=== PATIENT | male | born 1995 | race Two or more races ===

== ENCOUNTER 2018-04-18 16:11 | Emergency (ER) | payer OTHER, BC, MEDICAID | END 2018-04-18 19:08 | disposition home or self-care (01) | LOC: M ED 16:11 | DX: T54.3X1A Toxic effect of corrosive alkalis and alkali-like substances, accidental (unintentional), initial encounter (principal); H10.211 Acute toxic conjunctivitis, right eye; F17.210 Nicotine dependence, cigarettes, uncomplicated; X58.XXXA Exposure to other specified factors, initial encounter; Y92.89 Other specified places as the place of occurrence of the external cause | CPT/HCPCS: 99284 ==

== ENCOUNTER → 2020-07-30 | Outpatient (REF) | payer BC, OTHER ==
[2020-07-30 20:33] LABS: FREE T4 0.83 NG/DL (0.76-1.46); THYROID STIMULATING HORMONE 0.589 uIU/ML (0.358-3.740)
== END ==
LOC: M LAB REF 18:59 → M LABDRWAD 18:59
PROVIDERS: ATTEND Physician Assistant Medical
DX: F32.9 Major depressive disorder, single episode, unspecified (principal); F41.9 Anxiety disorder, unspecified

== ENCOUNTER → 2020-12-06 | Outpatient (CLI) | payer SELFPAY | LOC: M LABSMTC 10:18 | PROVIDERS: ATTEND Pediatrics | DX: Z20.822 Contact with and (suspected) exposure to COVID-19 (principal) ==

== ENCOUNTER 2022-10-27 12:17 | Emergency (ER) | payer OTHER, MEDICAID ==
[~2022-10-27] VITALS: Ht 190.5 cm; Wt 80.0 kg
[2022-10-27 18:21] VITALS: BP 124/78
== END 2022-10-27 19:40 | disposition home or self-care (01) ==
LOC: M ED 12:17
DX: S06.0X0A Concussion without loss of consciousness, initial encounter (principal); R07.81 Pleurodynia; M25.512 Pain in left shoulder; W01.0XXA Fall on same level from slipping, tripping and stumbling without subsequent striking against object, initial encounter; Y92.830 Public park as the place of occurrence of the external cause; Y93.23 Activity, snow (alpine) (downhill) skiing, snowboarding, sledding, tobogganing and snow tubing

== ENCOUNTER → 2022-12-06 | Outpatient (REF) | LOC: M LABSMTC 11:14 | PROVIDERS: ATTEND Family Medicine | DX: Z11.52 Encounter for screening for COVID-19 (principal) ==

== ENCOUNTER → 2022-12-09 | Outpatient (REF) | LOC: M LABSMTC 10:58 | PROVIDERS: ATTEND Family Medicine | DX: Z11.52 Encounter for screening for COVID-19 (principal) ==

== ENCOUNTER 2025-01-18 10:32 | Inpatient (IN) | payer MEDICAID, OTHER, SELFPAY ==
[~2025-01-18] VITALS: Ht 190.5 cm; Wt 78.3 kg
[2025-01-18 11:16] LABS: HEMATOCRIT 43.4 % (42.0-52.0); HEMOGLOBIN 15.5 g/dl (13.5-17.5); MEAN CORPUSCULAR HGB CONC 35.7 g/dl (32.0-36.5); MEAN CORPUSCULAR VOLUME 86.8 fl (80.0-96.0); PLATELET COUNT, AUTOMATED 240 10^3/uL (150-450); WHITE BLOOD COUNT 6.6 10^3/uL (4.0-10.0)
[2025-01-18 11:47] LABS: AMPHETAMINES LEVEL URINE NEGATIVE (NEGATIVE); BARBITURATES URINE NEGATIVE (NEGATIVE); BENZODIAZEPINES URINE NEGATIVE (NEGATIVE)
[2025-01-18 11:48] LABS: PHENCYCLIDINE URINE NEGATIVE (NEGATIVE)
[2025-01-18 11:50] LABS: ETHYL ALCOHOL (ETHANOL) < 0.003 % (0.000-0.010)
[2025-01-18 11:51] LABS: SALICYLATE LEVEL < 3.0 MG/DL (<30)
[2025-01-18 11:52] LABS: ALBUMIN 4.7 G/DL (3.2-5.2); ALKALINE PHOSPHATASE 86 U/L (40-129); ALT/SGPT 13 U/L (7.0-40); AST/SGOT 15 U/L (<34); BILIRUBIN,DIRECT 0.3 MG/DL (<0.4); BILIRUBIN,TOTAL 0.7 MG/DL (0.3-1.2); BLOOD UREA NITROGEN 11 MG/DL (9-23); CALCIUM LEVEL 9.3 MG/DL (8.5-10.1); CARBON DIOXIDE LEVEL 28 MMOL/L (20-31); CHLORIDE LEVEL 103 MMOL/L (98-107); CREATININE FOR GFR 0.82 MG/DL (0.70-1.30); GLOMERULAR FILTRATION RATE > 60.0 (>60); GLUCOSE, FASTING 83 MG/DL (60-100); POTASSIUM SERUM 3.9 MMOL/L (3.5-5.1); SODIUM LEVEL 143 MMOL/L (136-145); TOTAL PROTEIN 7.8 G/DL (5.7-8.2)
[2025-01-18] MEDS ORDERED: THERTAB52 PO (11:54)
[2025-01-18] MEDS ORDERED: HOME MED LIST COMPLETE! XX SCH (11:55)
[2025-01-18 12:10] LABS: CANNABINOIDS URINE POSITIVE (NEGATIVE); COCAINE METABOLITE URINE NEGATIVE (NEGATIVE); METHADONE URINE NEGATIVE (NEGATIVE); OPIATES URINE NEGATIVE (NEGATIVE)
[2025-01-18] MEDS ORDERED: traZODone 50 MG TAB PO PRN (15:15)
[2025-01-18] MEDS ORDERED: MOM 30ML SUSPENSION UDC PO PRN (15:15)
[2025-01-18] MEDS ORDERED: OLANZapine 5 MG TAB PO PRN (15:15)
[2025-01-18] MEDS ORDERED: MAALOX 30 ML SUSP *UDC PO PRN (15:15)
[2025-01-18] MEDS ORDERED: LORazepam 1 MG TAB PO PRN (15:15)
[2025-01-18] MEDS ORDERED: diphenhydrAMINE 25MG CAP PO PRN (15:15)
[2025-01-18] MEDS: NICOTINE 14 MG/24 HR TRANSDERMAL TD SCH (16:03)
[2025-01-18 16:16] VITALS: BP 129/87; TEMP 97.7; O2SAT 99
[2025-01-18 17:00] VITALS: BP 129/87
[2025-01-18] MEDS ORDERED: LORazepam 2 MG TAB PO PRN (17:00)
[2025-01-18] MEDS: THIAMINE 100 MG TAB PO SCH (18:00)
[2025-01-18 23:24] VITALS: BP 132/62
[2025-01-19 06:39] VITALS: BP 114/59; TEMP 97.5; O2SAT 100
[2025-01-19 06:40] VITALS: BP 53/114
[2025-01-19] MEDS: FOLIC ACID 1MG TAB PO SCH (09:08)
[2025-01-19] MEDS: MULTIVITAMINS/MINERALS THERAP 1 TAB PO SCH (09:08)
[2025-01-19] MEDS: ACETAMINOPHEN 325 MG TAB PO PRN (11:29)
[2025-01-19 15:06] VITALS: BP 127/81; TEMP 98.1; O2SAT 97
[2025-01-19] MEDS ORDERED: traZODone 50 MG TAB PO SCH (16:30)
[2025-01-19] MEDS: LURASIDONE 20 MG TAB (LATUDA) PO SCH (18:04)
[2025-01-19] MEDS: traZODone 50 MG TAB PO SCH (20:29)
[2025-01-20 06:44] VITALS: BP 118/66; TEMP 97.3; O2SAT 97
[2025-01-20 15:59] VITALS: BP 134/66; TEMP 99; O2SAT 97
[2025-01-21 06:31] VITALS: BP 120/62; TEMP 97.8; O2SAT 100
[2025-01-21] MEDS: buPROPion **XL** TABLET 150MG (WELLBUTRIN XL) PO SCH (08:15)
[2025-01-21 15:42] VITALS: BP 142/84; TEMP 97.4; O2SAT 100
[2025-01-22 06:16] VITALS: BP 136/81; TEMP 97.2; O2SAT 97
[2025-01-22] MEDS ORDERED: HYDR-3363 PO (12:07)
[2025-01-22] MEDS ORDERED: TRAZ-252 PO (12:07)
[2025-01-22] MEDS ORDERED: BUPR150T12 PO (12:07)
[2025-01-22] MEDS ORDERED: LATU20TA PO (12:07)
== END 2025-01-22 13:44 | disposition home or self-care (01) | DRG 753 ==
LOC: M ED 10:32 → M ED INP 15:11 → M PSY 16:11
PROVIDERS: ADMIT Internal Medicine; ATTEND Psychiatry & Neurology Psychiatry
DX: F31.81 Bipolar II disorder (principal); R45.851 Suicidal ideations; F10.229 Alcohol dependence with intoxication, unspecified; Z81.8 Family history of other mental and behavioral disorders; F41.1 Generalized anxiety disorder; F17.210 Nicotine dependence, cigarettes, uncomplicated; Z62.819 Personal history of unspecified abuse in childhood